=== PATIENT | male | born 1980 | race Caucasian/White ===

== ENCOUNTER 2019-04-27 07:19 | Emergency (ER) | payer OTHER ==
[~2019-04-27] VITALS: Ht 193 cm; Wt 91.6 kg
[~2019-04-27 07:19] MED LIST: COZAAR25 MG; INTESTINEX680 M1 PO; ZANTAC150 M3 PO
== END 2019-04-27 10:31 | disposition home or self-care (01) ==
LOC: ER 07:19
DX: R19.7 Diarrhea, unspecified (principal)